=== PATIENT | female | born 1950 | race Caucasian/White ===

== ENCOUNTER 2021-05-17 08:14 | Day surgery (SDC) | payer MEDICARE, BC ==
[2021-05-17] MEDS ORDERED: Lactated Ringers 1,000 ML IV SCH (08:15)
[2021-05-17] MEDS ORDERED: Sodium Chloride 0.9% 10 ML Syringe FLUSH PRN (08:15)
[2021-05-17] MEDS ORDERED: Propofol 200 MG/20 ML SDV IV ONE (08:15)
== END 2021-05-17 11:33 | disposition home or self-care (01) ==
LOC: FB.SDS 08:14
PROVIDERS: ATTEND Surgery
DX: K64.0 First degree hemorrhoids (principal); K21.9 Gastro-esophageal reflux disease without esophagitis; G47.30 Sleep apnea, unspecified; E89.0 Postprocedural hypothyroidism; Z88.5 Allergy status to narcotic agent; Z88.6 Allergy status to analgesic agent; Z88.8 Allergy status to other drugs, medicaments and biological substances; Z98.890 Other specified postprocedural states; Z79.890 Hormone replacement therapy; Z79.899 Other long term (current) drug therapy; Z80.0 Family history of malignant neoplasm of digestive organs; Z86.010 Personal history of colon polyps
CPT/HCPCS: 00812; 45378; J2704; J7120

== ENCOUNTER 2022-06-16 12:57 | Emergency (ER) | payer MEDICARE, BC ==
[2022-06-16 13:46] LABS: ESTIMATED GFR 61 mL/min (>60)
== END 2022-06-16 14:40 ==
LOC: FB.ED 12:57
DX: R27.0 Ataxia, unspecified (principal); R41.82 Altered mental status, unspecified; E78.00 Pure hypercholesterolemia, unspecified; Z88.5 Allergy status to narcotic agent; Z88.8 Allergy status to other drugs, medicaments and biological substances; Z79.899 Other long term (current) drug therapy
CPT/HCPCS: 36415; 70450; 71046; 80053; 81001; 83735; 85025; 86140; 87086; 93005; 93010; 99284; 99285

== ENCOUNTER 2023-08-07 18:21 | Inpatient (IN) | payer MEDICARE, BC ==
[2023-08-07] MEDS: Sodium Chloride 0.9% 1,000 ML IV SCH ×2 (19:06→23:00)
[2023-08-07 19:09] LABS: BLOOD UREA NITROGEN,BUN 17 mg/dL (7-18); BUN/CREATININE RATIO 15.5 (9-20); CALCIUM 9.3 mg/dL (8.6-10.2); CARBON DIOXIDE,CO2 27 mmol/L (21-32); CHLORIDE,CL 101 mmol/L (100-110); CREATININE 1.1 mg/dL (0.55-1.02); ESTIMATED GFR 54 mL/min (>60); GLUCOSE RANDOM 103 mg/dL (80-116); POTASSIUM,K 4.2 mmol/L (3.5-5.3); SODIUM,NA 137 mmol/L (135-145)
[2023-08-07 19:09] LABS: BASOPHILS PERCENT AUTO 0.2 % (0.2-1.5); EOSINOPHILS PERCENT AUTO 0.1 % (0.6-8.1); HEMATOCRIT 40.9 % (34.2-48.2); HEMOGLOBIN 13.4 g/dL (11.4-15.5); LYMPHOCYTES ABSOLUTE AUTO 3.4 x10-3/uL (1.0-4.4); LYMPHOCYTES PERCENT AUTO 38.8 % (18.4-52.1); MEAN CORPUSCULAR HGB CONC 32.8 g/dL (31.9-34.8); MEAN CORPUSCULAR VOLUME 91.6 fL (76.7-100.5); MEAN PLATELET VOLUME 9.5 fL (7.1-12.4); MONOCYTES ABSOLUTE AUTO 0.4 x10-3/uL (0.3-1.0); MONOCYTES PERCENT AUTO 4.8 % (4.4-15.7); NEUTROPHILS ABSOLUTE AUTO 4.9 x10-3/uL (1.5-6.3); NEUTROPHILS PERCENT AUTO 56.1 % (30.8-76.2); PLATELET COUNT,PLT 158 x10(3)uL (151-488); RED BLOOD CELL COUNT 4.46 x10(6)uL (3.60-5.20); RED CELL DISTRIBUTION WIDTH 14.2 % (12.3-16.5); WHITE BLOOD CELL COUNT,WBC 8.7 x10-3/uL (3.0-10.3)
[2023-08-07 19:15] LABS: A/G RATIO 1.1; ALANINE AMINOTRANSFERASE,ALT 29 U/L (12-36); ALKALINE PHOSPHATASE 87 IU/L (56-112); ASPARTATE AMNIOTRANSFERASE,AST 23 IU/L (5-25); BILIRUBIN TOTAL 0.3 mg/dL (0.1-1.3); PROTEIN TOTAL,TP 7.8 g/dL (6.0-8.0)
[2023-08-07 19:19] LABS: LACTIC ACID 1.1 mmol/L (0.4-2.0)
[2023-08-07] MEDS: Ketorolac 30 MG/ML SDV IVPUSH ONE (19:33)
[2023-08-07 19:38] LABS: INFLUENZA A NAA NEGATIVE (NEGATIVE); INFLUENZA B NAA NEGATIVE (NEGATIVE); RESPIRATORY SYNCYTIAL VIR NAA NEGATIVE (NEGATIVE)
[2023-08-07] MEDS: Acetaminophen 500 MG Tab PO ONE (19:39)
[2023-08-07 19:43] LABS: CORONAVIRUS COVID-19 NAA NEGATIVE (NEGATIVE)
[2023-08-07 19:45] LABS: BILIRUBIN,URINE NEGATIVE (NEGATIVE); GLUCOSE,URINE NORMAL (NORMAL); KETONES,URINE 15 mg/dL (NEGATIVE); LEUKOCYTE ESTERASE,URINE NEGATIVE (NEGATIVE); NITRITE,URINE NEGATIVE (NEGATIVE); OCCULT BLOOD,URINE NEGATIVE (NEGATIVE); PROTEIN,URINE NEGATIVE (NEGATIVE); UROBILINOGEN,URINE NORMAL (NEGATIVE)
[2023-08-07 19:48] LABS: APPEARANCE,URINE CLEAR (CLEAR); BACTERIA,URINE RARE (NS); COLOR,URINE YELLOW (YELLOW); RBC,URINE 0-5 (0-5); SQUAMOUS EPITHELIAL CELLS,UR OCCASIONAL (NS,R,O); WBC,URINE 0-5 (0-5)
[2023-08-07] MEDS ORDERED: Ketorolac 30 MG/ML SDV IVPUSH PRN (20:02)
[2023-08-07] MEDS ORDERED: Ondansetron 4 MG/2 ML SDV IV PRN (20:02)
[2023-08-07] MEDS ORDERED: Piperacillin/Tazobactam 3.375 GM in Sodium Chloride 0.9% 50 ML IV SCH (20:15)
[2023-08-07] MEDS: Iopamidol 755 Mg/ML 100 ML Bottle IV SCH (20:55)
[2023-08-07] MEDS: Piperacillin/Tazobactam 4.5 GM in Sodium Chloride 0.9% 100 ML IV ONE (21:30)
[2023-08-07] MEDS: Acetaminophen 325 MG Tab PO PRN (21:52)
[2023-08-07] MEDS: Benzonatate 100 MG Cap PO ONE (23:54)
[2023-08-08] MEDS: Piperacillin/Tazobactam 4.5 GM in Sodium Chloride 0.9% 100 ML IV SCH (00:12)
[2023-08-08 06:34] LABS: BASOPHILS PERCENT AUTO 0.3 % (0.2-1.5); EOSINOPHILS PERCENT AUTO 0.3 % (0.6-8.1); HEMATOCRIT 31.3 % (34.2-48.2); HEMOGLOBIN 10.3 g/dL (11.4-15.5); LYMPHOCYTES ABSOLUTE AUTO 3.2 x10-3/uL (1.0-4.4); LYMPHOCYTES PERCENT AUTO 51.6 % (18.4-52.1); MEAN CORPUSCULAR HEMOGLOBIN 30.1 pg (23.9-33.9); MEAN CORPUSCULAR HGB CONC 32.9 g/dL (31.9-34.8); MEAN CORPUSCULAR VOLUME 91.5 fL (76.7-100.5); MEAN PLATELET VOLUME 9.6 fL (7.1-12.4); MONOCYTES ABSOLUTE AUTO 0.6 x10-3/uL (0.3-1.0); MONOCYTES PERCENT AUTO 9.9 % (4.4-15.7); NEUTROPHILS ABSOLUTE AUTO 2.4 x10-3/uL (1.5-6.3); NEUTROPHILS PERCENT AUTO 37.9 % (30.8-76.2); PLATELET COUNT,PLT 119 x10(3)uL (151-488); RED BLOOD CELL COUNT 3.42 x10(6)uL (3.60-5.20); RED CELL DISTRIBUTION WIDTH 14.3 % (12.3-16.5); WHITE BLOOD CELL COUNT,WBC 6.3 x10-3/uL (3.0-10.3)
[2023-08-08 06:52] LABS: A/G RATIO 0.9; ALANINE AMINOTRANSFERASE,ALT 19 U/L (12-36); ALBUMIN 2.5 g/dL (3.2-4.6); ALKALINE PHOSPHATASE 50 IU/L (56-112); ASPARTATE AMNIOTRANSFERASE,AST 17 IU/L (5-25); BILIRUBIN TOTAL 0.5 mg/dL (0.1-1.3); BLOOD UREA NITROGEN,BUN 15 mg/dL (7-18); BUN/CREATININE RATIO 16.7 (9-20); CALCIUM 7.3 mg/dL (8.6-10.2); CARBON DIOXIDE,CO2 24 mmol/L (21-32); CHLORIDE,CL 107 mmol/L (100-110); CREATININE 0.9 mg/dL (0.55-1.02); EST CRCL DRUG DOSING (CG) 51.59 mL/min; ESTIMATED GFR 68 mL/min (>60); GLUCOSE RANDOM 98 mg/dL (80-116); POTASSIUM,K 3.4 mmol/L (3.5-5.3); PROTEIN TOTAL,TP 5.2 g/dL (6.0-8.0); SODIUM,NA 139 mmol/L (135-145)
[2023-08-08] MEDS: Calcium Carbonate 500 MG Tablet PO SCH (09:24)
[2023-08-08] MEDS: Ascorbic Acid 500 MG Tab PO SCH (09:24)
[2023-08-08] MEDS: Benzonatate 100 MG Cap PO SCH (09:24)
[2023-08-08] MEDS ORDERED: Oxymetazoline 0.05% Nasal Spray 30 ML Bottle NASBOTH PRN (09:52)
[2023-08-08] MEDS ORDERED: Psyllium Husk Powder Sugar Free 5.85 GM Packet PO PRN (09:57)
[2023-08-08] MEDS: Saccharomyces Boulardii (Probiotic) 250 MG Cap PO SCH (10:13)
[2023-08-08] MEDS: Enoxaparin 40 MG/0.4 ML Syringe SUBCUT SCH (10:13)
[2023-08-08] MEDS: guaiFENesin 100 MG/5 ML Soln 5 ML UD Cup PO PRN (10:13)
[2023-08-08] MEDS: Sodium Chloride 0.9% 1,000 ML IV SCH (11:26)
[2023-08-08] MEDS: Fluticasone NASAL Spray 16 GM Bottle NASBOTH SCH (11:28)
[2023-08-08] MEDS: Codeine/guaiFENesin 10-100 MG/5 ML Syrup 5 ML Cup PO PRN (20:11)
[2023-08-08] MEDS: Amitriptyline 10 MG Tab PO SCH (20:11)
[2023-08-08] MEDS: Simvastatin 40 MG Tab PO SCH (20:11)
[2023-08-08] MEDS: Potassium Chloride 20 MEQ Tab.ER PO SCH (20:11)
[2023-08-08] MEDS ORDERED: ClonazePAM 0.5 MG Tab PO SCH (21:00)
[2023-08-09 06:31] LABS: HEMATOCRIT 30.3 % (34.2-48.2); HEMOGLOBIN 10.1 g/dL (11.4-15.5); MEAN CORPUSCULAR HEMOGLOBIN 30.6 pg (23.9-33.9); MEAN CORPUSCULAR HGB CONC 33.4 g/dL (31.9-34.8); MEAN CORPUSCULAR VOLUME 91.8 fL (76.7-100.5); MEAN PLATELET VOLUME 9.8 fL (7.1-12.4); RED CELL DISTRIBUTION WIDTH 14.5 % (12.3-16.5); WHITE BLOOD CELL COUNT,WBC 7.1 x10-3/uL (3.0-10.3)
[2023-08-09 06:43] LABS: A/G RATIO 0.8; ALANINE AMINOTRANSFERASE,ALT 38 U/L (12-36); ALBUMIN 2.3 g/dL (3.2-4.6); ALKALINE PHOSPHATASE 52 IU/L (56-112); ASPARTATE AMNIOTRANSFERASE,AST 43 IU/L (5-25); BILIRUBIN TOTAL 0.2 mg/dL (0.1-1.3); BLOOD UREA NITROGEN,BUN 10 mg/dL (7-18); CALCIUM 7.5 mg/dL (8.6-10.2); CARBON DIOXIDE,CO2 24 mmol/L (21-32); CHLORIDE,CL 112 mmol/L (100-110); EST CRCL DRUG DOSING (CG) 46.25 mL/min; ESTIMATED GFR 60 mL/min (>60); GLUCOSE RANDOM 101 mg/dL (80-116); PROTEIN TOTAL,TP 5.3 g/dL (6.0-8.0); SODIUM,NA 144 mmol/L (135-145)
[2023-08-09 07:02] LABS: PLATELET COUNT,PLT 118 x10(3)uL (151-488)
[2023-08-09 07:05] LABS: EOSINOPHILS PERCENT MAN 1 % (0-5); LYMPHOCYTES PERCENT MAN 61 % (13-37); MONOCYTES PERCENT MAN 6 % (4-12); SEG NEUTROPHILS PERCENT MAN 32 % (46-82)
[2023-08-09] MEDS: Sodium Chloride 0.9% 10 ML Syringe FLUSH PRN (08:06)
[2023-08-09] MEDS: Furosemide 20 MG/2 ML VIAL IVPUSH ONE (08:06)
[2023-08-09] MEDS: Albuterol/Ipratropium 3.0-0.5 MG/3 ML Neb Soln NEB SCH (11:15)
[2023-08-09] MEDS: Albuterol/Ipratropium 3.0-0.5 MG/3 ML Neb Soln NEB PRN (15:47)
[2023-08-09] MEDS: ClonazePAM 1 MG Tab PO SCH (21:46)
[2023-08-10] MEDS: LEVOTHYROXINE 137 MCG PO SCH (06:20)
[2023-08-10 06:37] LABS: BASOPHILS PERCENT AUTO 0.3 % (0.2-1.5); EOSINOPHILS ABSOLUTE AUTO 0.1 x10-3/uL (0.0-0.8); EOSINOPHILS PERCENT AUTO 1.8 % (0.6-8.1); HEMATOCRIT 32.6 % (34.2-48.2); HEMOGLOBIN 10.7 g/dL (11.4-15.5); LYMPHOCYTES ABSOLUTE AUTO 3.6 x10-3/uL (1.0-4.4); LYMPHOCYTES PERCENT AUTO 51.8 % (18.4-52.1); MEAN CORPUSCULAR HEMOGLOBIN 30.1 pg (23.9-33.9); MEAN CORPUSCULAR HGB CONC 32.9 g/dL (31.9-34.8); MEAN CORPUSCULAR VOLUME 91.6 fL (76.7-100.5); MEAN PLATELET VOLUME 9.6 fL (7.1-12.4); MONOCYTES ABSOLUTE AUTO 0.6 x10-3/uL (0.3-1.0); MONOCYTES PERCENT AUTO 8.1 % (4.4-15.7); NEUTROPHILS ABSOLUTE AUTO 2.6 x10-3/uL (1.5-6.3); PLATELET COUNT,PLT 122 x10(3)uL (151-488); RED BLOOD CELL COUNT 3.56 x10(6)uL (3.60-5.20); RED CELL DISTRIBUTION WIDTH 14.3 % (12.3-16.5); WHITE BLOOD CELL COUNT,WBC 6.9 x10-3/uL (3.0-10.3)
[2023-08-10 06:47] LABS: A/G RATIO 0.8; ALANINE AMINOTRANSFERASE,ALT 31 U/L (12-36); ALBUMIN 2.6 g/dL (3.2-4.6); ALKALINE PHOSPHATASE 59 IU/L (56-112); ASPARTATE AMNIOTRANSFERASE,AST 30 IU/L (5-25); BILIRUBIN TOTAL 0.3 mg/dL (0.1-1.3); BLOOD UREA NITROGEN,BUN 8 mg/dL (7-18); BUN/CREATININE RATIO 8.9 (9-20); CALCIUM 8.1 mg/dL (8.6-10.2); CARBON DIOXIDE,CO2 27 mmol/L (21-32); CHLORIDE,CL 109 mmol/L (100-110); CREATININE 0.9 mg/dL (0.55-1.02); EST CRCL DRUG DOSING (CG) 51.38 mL/min; ESTIMATED GFR 68 mL/min (>60); GLUCOSE RANDOM 100 mg/dL (80-116); POTASSIUM,K 3.8 mmol/L (3.5-5.3); PROTEIN TOTAL,TP 5.9 g/dL (6.0-8.0); SODIUM,NA 144 mmol/L (135-145)
== END 2023-08-10 12:35 | disposition home or self-care (01) | DRG 153 ==
LOC: FB.ED 18:21 → FB.MS 20:02 → UNDOADMIN 20:44 → FB.MS 20:44 → UNDODISIN 08-10 12:35
PROVIDERS: ADMIT Family Medicine; ATTEND Family Medicine
DX: A41.9 Sepsis, unspecified organism (principal); R41.0 Disorientation, unspecified; B99.9 Unspecified infectious disease; J01.00 Acute maxillary sinusitis, unspecified; I95.9 Hypotension, unspecified; F41.9 Anxiety disorder, unspecified; Z79.890 Hormone replacement therapy; E78.00 Pure hypercholesterolemia, unspecified; G47.00 Insomnia, unspecified; K21.9 Gastro-esophageal reflux disease without esophagitis; F32.A Depression, unspecified; E89.0 Postprocedural hypothyroidism; R91.1 Solitary pulmonary nodule; R09.89 Other specified symptoms and signs involving the circulatory and respiratory systems; R79.89 Other specified abnormal findings of blood chemistry; D69.6 Thrombocytopenia, unspecified; E87.70 Fluid overload, unspecified; Z85.6 Personal history of leukemia; Z88.5 Allergy status to narcotic agent; Z88.8 Allergy status to other drugs, medicaments and biological substances; Z79.899 Other long term (current) drug therapy; Z98.890 Other specified postprocedural states; Z98.49 Cataract extraction status, unspecified eye; Z98.891 History of uterine scar from previous surgery
CPT/HCPCS: 0241U; 36415; 70486; 71045; 71275; 80053; 81001; 82947; 83605; 84484; 85025; 85379; 86140; 87040; 93005; 93010; 94640; 96361; 96374; 99223; 99232; 99238; 99285; A9270-GY; J1650; J1885; J1940; J2543; J3490; J7030; J7620; Q9967

== ENCOUNTER 2024-02-04 15:04 | Emergency (ER) | payer MEDICARE, BC ==
[2024-02-04] MEDS ORDERED: Sodium Chloride 0.9% 10 ML Syringe FLUSH PRN (15:07)
[2024-02-04] MEDS: Aspirin 81 MG Tab.Chew PO ONE (15:25)
[2024-02-04 15:31] LABS: HEMATOCRIT 40.8 % (34.2-48.2); HEMOGLOBIN 13.8 g/dL (11.4-15.5); MEAN CORPUSCULAR HEMOGLOBIN 30.3 pg (23.9-33.9); MEAN CORPUSCULAR HGB CONC 33.9 g/dL (31.9-34.8); MEAN CORPUSCULAR VOLUME 89.4 fL (76.7-100.5); MEAN PLATELET VOLUME 8.6 fL (7.1-12.4); PLATELET COUNT,PLT 233 x10(3)uL (151-488); RED BLOOD CELL COUNT 4.56 x10(6)uL (3.60-5.20); RED CELL DISTRIBUTION WIDTH 14.6 % (12.3-16.5); WHITE BLOOD CELL COUNT,WBC 10.3 x10-3/uL (3.0-10.3)
[2024-02-04 15:33] LABS: BLOOD UREA NITROGEN,BUN 16 mg/dL (7-18); CALCIUM 9.6 mg/dL (8.6-10.2); CARBON DIOXIDE,CO2 29 mmol/L (21-32); CHLORIDE,CL 104 mmol/L (100-110); ESTIMATED GFR 60 mL/min (>60); GLUCOSE RANDOM 97 mg/dL (80-116); POTASSIUM,K 3.9 mmol/L (3.5-5.3); SODIUM,NA 141 mmol/L (135-145)
[2024-02-04 15:39] LABS: A/G RATIO 1.2; ALANINE AMINOTRANSFERASE,ALT 33 U/L (12-36); ALBUMIN 3.9 g/dL (3.2-4.6); ALKALINE PHOSPHATASE 84 IU/L (56-112); ASPARTATE AMNIOTRANSFERASE,AST 22 IU/L (5-25); BILIRUBIN TOTAL 0.3 mg/dL (0.1-1.3); PROTEIN TOTAL,TP 7.3 g/dL (6.0-8.0)
[2024-02-04 15:45] LABS: LYMPHOCYTES % ATYPICAL MANUAL 18 % (0-0); LYMPHOCYTES PERCENT MAN 50 % (13-37); MONOCYTES PERCENT MAN 6 % (4-12); PRO B-TYPE NATRIUR PEPT,BNPPRO 107 pg/mL (<=125); SEG NEUTROPHILS PERCENT MAN 26 % (46-82)
[2024-02-04 15:46] LABS: TROPONIN I < 4.0 pg/mL (4.0-60.3)
== END 2024-02-04 16:40 | disposition home or self-care (01) ==
LOC: FB.ED 15:04
DX: R07.9 Chest pain, unspecified (principal); E78.00 Pure hypercholesterolemia, unspecified; K21.9 Gastro-esophageal reflux disease without esophagitis; Z79.899 Other long term (current) drug therapy; Z79.891 Long term (current) use of opiate analgesic; Z88.5 Allergy status to narcotic agent; Z88.8 Allergy status to other drugs, medicaments and biological substances
CPT/HCPCS: 36415; 71045; 80053; 83880; 84484; 85025; 93005; 99285; A9270-GY